=== PATIENT | male | born 1980 | race Caucasian/White ===

== ENCOUNTER → 2023-04-25 07:09 | Outpatient (BNVA) | payer MEDICAID, SELFPAY | PROVIDERS: Family Provider Family Medicine; PCP Family Medicine Adult Medicine; Visit Provider Family Medicine Adult Medicine | DX: I10 Essential (primary) hypertension (principal); K21.9 Gastro-esophageal reflux disease without esophagitis; Z78.9 Other specified health status; E66.9 Obesity, unspecified | CPT/HCPCS: 80053; 80061; 84443; 85025; G0103 ==

== ENCOUNTER → 2023-06-06 15:47 | Outpatient (BNVA) | payer MEDICAID, SELFPAY | PROVIDERS: Family Provider Family Medicine; PCP Family Medicine Adult Medicine; Visit Provider Nurse Practitioner | DX: M25.512 Pain in left shoulder (principal); G89.29 Other chronic pain | CPT/HCPCS: 73030 ==

== ENCOUNTER 2023-06-21 05:54 | Day surgery (SDC) | payer MEDICAID, SELFPAY ==
[2023-06-21] VITALS (13 sets, daily range): BP systolic 107–167; BP diastolic 69–112; PULSE 78–114; RESP 12–18; TEMP 36.1–37.1; O2SAT 90–98; BMI 35.9
[2023-06-21] MEDS: sodium chloride 0.9% 1,000 ML 30 ML IV (06:24)
--- NOTE | 2023-06-21 06:33 | W.PM.OPSFHP ---
Same Day Surgery H&P Indication for Procedure/HPI DATE OF PROCEDURE: June 21, 2023 CHIEF COMPLAINT/INDICATIONFOR SURGICAL PROCEDURE: inguinal hernia PREOP DIAGNOSIS: possible bilateral inguinal hernia PLANNED PROCEDURE: Operation Date: 06/21/23 08:30 Proposed Procedures p 61806 x2 52214 x2 lap possible open bilateral inguinal hernia repair with mesh K46.9 hernia(Bilateral) - Marlon Hammond MD Medications/Allergies* Home Medications Medication Instructions Recorded Confirmed Type multivitamin 1 tab PO DAILY 04/20/23 06/21/23 History omeprazole 20 mg capsule,delayed 20 mg PO DAILY 04/20/23 06/21/23 History release niacin 500 mg capsule,extended 500 mg PO DAILY 05/17/23 06/21/23 History release Allergies/Adverse Reactions Allergy/AdvReac Type Severity Reaction Status Date / Time No Known Allergies Allergy Verified 06/21/23 06:04 Current Medications: Generic Name Dose Route Start Last Admin Trade Name Freq PRN Reason Stop Dose Admin Sodium Chloride 1,000 mls @ 30 mls/hr 06/21/23 06:00 06/21/23 06:24 Sodium Chloride 0.9% IV 06/22/23 05:59 30 mls/hr .Q24H LISA Administration Pertinent History/Comorbid Conditions* Medical History (Updated 06/07/23 @ 17:58 by ALEKSEY Gonsales) Pain of sternoclavicular joint without trauma Plantar fasciitis, bilateral Dyslipidemia (high LDL; low HDL) Chronic left shoulder pain Acromioclavicular joint pain Left inguinal hernia Participant in health and wellness plan Obesity Hypertension Acid reflux Seasonal allergies Surgical History (Updated 04/20/23 @ 11:30 by Guanakito Heaton MD) No pertinent past surgical history Family History (Updated 04/20/23 @ 11:28 by Alysha Altman LPN) Father Pancreatic cancer Father COPD (chronic obstructive pulmonary disease) Father Mother Cancer Father Social History Smoking and tobacco/nicotine status: former use of tobacco/nicotine Quit status (tobacco/nicotine): has quit using Alcohol intake: former Substance/Drug Use: never Pertinent Exam Findings alert, oriented x 3 and clear to auscultation bilaterally Recommendations Surgery/Procedure today Coding Level of Care Code Acute Code for Chg Fwd
--- NOTE | 2023-06-21 08:03 | ANES.PREANE2 ---
Pre-Anesthetic Assessment Height/Weight: Height 1.78 m Weight 113.398 kg Temp Pulse Resp BP Pulse Ox O2 Del Method 97.0 F L 81 18 167/104 95 Room Air 06/21/23 06:08 06/21/23 06:08 06/21/23 06:08 06/21/23 06:08 06/21/23 06:08 06/21/23 06:11 Preop Diagnosis: possible bilateral inguinal hernia Operation Date: 06/21/23 08:30 Proposed Procedures p 11684 x2 47715 x2 lap possible open bilateral inguinal hernia repair with mesh K46.9 hernia(Bilateral) - Marlon Hammond MD Familial anesthetic complications: None Was Beta Sharifa taken within 24 hours: N/A Was Clonidine taken within 24 hours: N/A Last intake: Intake Last Liquid Date 06/20/23 Last Liquid Time 22:50 Last Solid Date 06/21/23 Last Solid Time 19:30 Social No alcohol and No tobacco Exam alert, oriented x 3, clear to auscultation bilaterally and regular rate & rhythm Airway Mallampati: Class IV Dentition: other (1 missing) CV/HEM Hypertension GI Gastroesophageal Reflux Disease Metabolic Hyperlipidemia and Morbid Obesity Anesthetic Plan ASA status: 3 Anesthesia: General Risk of > 500 ml blood loss (7ml/kg in children): No Medications/Allergies Home Medications Medication Instructions Recorded Confirmed Last Taken Type multivitamin 1 tab PO DAILY 04/20/23 06/21/23 06/20/23 History omeprazole 20 mg capsule,delayed 20 mg PO DAILY 04/20/23 06/21/23 06/20/23 History release niacin 500 mg capsule,extended 500 mg PO DAILY 05/17/23 06/21/23 06/20/23 History release meloxicam 15 mg tablet 15 mg PO DAILY #90 tabs 06/06/23 06/21/23 06/20/23 Rx Allergies Allergy/AdvReac Type Severity Reaction Status Date / Time No Known Allergies Allergy Verified 06/21/23 06:04 Current Medications Generic Name Dose Route Start Last Admin Trade Name Freq PRN Reason Stop Dose Admin Sodium Chloride 1,000 mls @ 30 mls/hr 06/21/23 06:00 06/21/23 06:24 Sodium Chloride 0.9% IV 06/22/23 05:59 30 mls/hr .Q24H LISA Administration PFSH Anesthesia Medical History (Updated 06/07/23 @ 17:58 by ALEKSEY Gonsales) Pain of sternoclavicular joint without trauma Plantar fasciitis, bilateral Dyslipidemia (high LDL; low HDL) Chronic left shoulder pain Acromioclavicular joint pain Left inguinal hernia Participant in health and wellness plan Obesity Hypertension Acid reflux Seasonal allergies Surgical History No pertinent past surgical history Family History Father Cancer Pancreatic cancer COPD (chronic obstructive pulmonary disease) Mother COPD (chronic obstructive pulmonary disease) Social History Smoking and tobacco/nicotine status: former use of tobacco/nicotine Quit status (tobacco/nicotine): has quit using Alcohol intake: former Substance/Drug Use: never Data Anesthesia Cardiac Studies: No Data to Display
[2023-06-21] MEDS: ceFAZolin 2,000 MG in sodium chloride 0.9% (plus) 50 ML 100 MG IV (09:11)
[2023-06-21] MEDS: BUPivacaine 0.25% INJ 10 mL INJECTION (09:53)
[2023-06-21] MEDS: lidocaine-epi 2% 20 mL INJ INJECTION (09:54)
--- NOTE | 2023-06-21 11:44 | PC.NURSE ---
Called patient's , Anna, with an operative update.
--- NOTE | 2023-06-21 12:46 | PM.OP ---
Operative Report Date of procedure: June 21, 2023 Pre-op diagnosis: Left inguinal hernia Post-op diagnosis: Same Post-op findings: There was a large left inguinal hernia indirect, the floor of the canal was also destroyed, almost completely replaced with fatty tissue. There was significant additions on the left groin. Procedure done: Laparoscopic converted to open left inguinal hernia repair with mesh. Implants: Bard polypropylene mesh Specimens removed/disposition: Hernia sac and lipoma of the cord Surgeon: Marlon Hammond MD Livestock Laborer: TITA OR STaff Estimated blood loss: 10 Complications: none Brief History: 43 year-old male with history of left inguinal hernia who presented for repair. After discussion of all risk and benefits of the procedure as documented in my preop note we decided to proceed with Procedure: Patient was brought into the OR, he was placed in the supine position. General esthesia was given. Abdomen was prepped and draped in usual sterile fashion. Timeout was conducted. 2 cm infraumbilical incision was made, the incision was deepened to the anterior rectus sheath, the anterior rectus sheath was opened and the rectus muscle retracted laterally, a Spacemaker was placed in the retrorectus space and inflated under direct visualization. Due to patient body habitus Spacemaker was unable to create an adequate space in the preperitoneal region. I placed a balloon trocar and proceed with insufflation, but there was no working space and it was impossible for me to develop the plane. At this point with side to convert to an open procedure, the gas was evacuated, the wound was closed in layers using #0 Vicryl for the anterior rectus sheath and 4 Monocryl for the skin. On the left groin a 7 cm incision was made, the incision was deepened to subcutaneous tissue until the aponeurosis of the external oblique was identified. The aponeurosis of external oblique was opened from the area overlying the internal ring to the external ring. There was significant scarring from the cord structures to the inguinal canal, after careful dissection I was able to evaluate the cord structures and pass a [place] under it, at this point he noted that the posterior wall of the canal was completely destroyed, it had almost completely been replaced by fatty tissue. I then proceeded to dissect the cord structures from the hernia sac, the hernia sac was identified completely dissected to the level of the internal ring and then suture-ligated and transected. I also identified a cord lipoma, which was excised in the same way. Careful dissection was undertaken preserving the vas deferens and testicular vessels, there was significant adhesions of the cord to the floor of the canal into the aponeurosis of the internal oblique, making the procedure clinically challenging. After adequate anatomy was identified I proceeded to place the mesh in the floor of the canal, it was fixed medially to the pubic tubercle on the inferior lateral direction to the shelving edge of the inguinal ligament on the superior direction to the conjoined tendon and the tails were joined on the lateral aspect. The mesh was used to recreate the floor of the canal. The mesh was in place hemostasis was verified, the external bleak aponeurosis was closed with #2-0 Vicryl leaving enough space for the cord structures to around to the testicle. The wound was then closed in layers using #2-0 Vicryl for David's, 3-0 Vicryl for the subcutaneous tissue and 4 Monocryl for the skin. A sterile dressing was applied and a compression dressing was applied on top. The patient tolerated well the procedure, was extubated and transferred to the PACU in stable condition. All counts were correct at the end of the procedure.
[2023-06-21] MEDS: ondansetron 2 mg/ML SDV 2 mL 4 MG IVP (13:48)
[2023-06-21] MEDS: oxyCODONE 5 mg IR Tab/Cap PO (13:48)
[2023-06-21] MEDS: ondansetron 4 MG Tablet PO (15:12)
--- NOTE | 2023-06-21 15:20 | ANE.PACU2 ---
Inpatient post-anesthesia follow up: Airway intact: Yes Vital signs: Temperature 97.7 F Pulse Rate 78 Respiratory Rate 16 Blood Pressure 115/71 Pulse Oximetry 94 Oxygen Delivery Me thod Nasal Cannula Oxygen Flow Rate 3 Fraction of Inspir ed Oxygen Hydration adequate: Yes Nausea and vomiting: No Pain level: 1 Mental status: Baseline
== END 2023-06-21 15:18 | disposition home or self-care (01) ==
PROVIDERS: Family Provider Family Medicine; PCP Family Medicine Adult Medicine; Visit Provider Surgery
PROC: (CPT 49650; principal; 2023-06-21 08:30)
DX: K40.90 Unilateral inguinal hernia, without obstruction or gangrene, not specified as recurrent (principal); D17.6 Benign lipomatous neoplasm of spermatic cord; Z53.31 Laparoscopic surgical procedure converted to open procedure; I10 Essential (primary) hypertension; E78.5 Hyperlipidemia, unspecified; E66.01 Morbid (severe) obesity due to excess calories; Z68.35 Body mass index [BMI] 35.0-35.9, adult; K21.9 Gastro-esophageal reflux disease without esophagitis; Z87.891 Personal history of nicotine dependence
CPT/HCPCS: 49505; 51702; 88302; 88304; J0690; J1100; J1170; J2371; J2405; J2704; J2710; J3010; J3490; J7030; Q0162